=== PATIENT | male | born 1980 | race Caucasian/White ===

== ENCOUNTER 2022-12-29 15:14 | Emergency (ER) | payer MEDICAID, SELFPAY ==
[2022-12-29 15:24] VITALS: BP 144/82; PULSE 80; RESP 16; TEMP 36.6; O2SAT 100; BMI 22.3
--- NOTE | 2022-12-29 15:44 | ED.NURSE ---
Pt has 3 lacerations noted around his L eye area. 1: approx 3cm curved laceration from medial corner of the left eye down towards the left cheek. 2: approx 2cm laceration on the medial side of the left eyebrow. 3: approx 2cm laceration on the lateral side of the left eyebrow.
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
[2022-12-29] MEDS: TETANUS/DIPHTH/PERTUSSIS 0.5 ML SYRINGE IM (17:34)
[2022-12-29] MEDS: BUPIVACAINE 0.25 %/EPI 1:200K 30 ml INJECTION (17:45)
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
--- NOTE | 2022-12-29 18:22 | ED.NURSE ---
Pt lacs on L eyebrow bandaged with bacitracin, telfa, and paper tape.
[2022-12-29 18:23] VITALS: BP 133/87; PULSE 51; RESP 16; O2SAT 98
== END 2022-12-29 18:52 | disposition other institution (70) ==
LOC: ED 18:41
PROVIDERS: Emergency Provider Emergency Medicine
DX: S01.112A Laceration without foreign body of left eyelid and periocular area, initial encounter (principal); S01.81XA Laceration without foreign body of other part of head, initial encounter; Y04.2XXA Assault by strike against or bumped into by another person, initial encounter
CPT/HCPCS: 12013; 70450; 70486; 90471; 90715; 99283; 99284

== ENCOUNTER 2023-01-04 07:34 | Emergency (ER) | payer MEDICAID, SELFPAY ==
[2023-01-04 07:42] VITALS: BP 131/82; PULSE 90; RESP 16; TEMP 36.6; O2SAT 98; BMI 20.9
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
== END 2023-01-04 08:04 | disposition home or self-care (01) ==
PROVIDERS: Emergency Provider Family Medicine
DX: Z48.02 Encounter for removal of sutures (principal)
CPT/HCPCS: 99199; 99281; 99282